=== PATIENT | female | born 1995 | race Caucasian/White ===

== ENCOUNTER 2019-02-10 12:03 | Observation (INO) ==
[2019-02-10] MEDS ORDERED: FLU Vac QV 19-20 (6Month+)/PF 0.5 ML SYRINGE IM ONE (12:39)
[2019-02-10 12:45] VITALS: BP 118/63
--- NOTE | 2019-02-10 13:25 | OB/GYN History & Physical ---
Date of Encounter: 02/10/19 Time of Encounter: 13:24 Assessment and Plan (1) Dehydration Current visit: Yes Status: Acute 23yo at 24+3wks GA who presents with concern for nausea, lightheadedness, dizziness, headache 1. Concern for dehydration - patient with adequate PO intake - was pulling weeds yesterday in the heat - feeling nauseated, 1x emesis, but now able to tolerate PO - recommendation for patient to hydate and NOT remain in the sun with excessive heat and humidity - swelling in upper and lower extremities was not appreciated on examination, patient reported it had improved upon arrival - will have patient f/u in the office, recommendation at time of discharge for PO hydration and temperature awareness 2. FWB - good FM - S = D - RNST for GA 3. MWB - normotensive - denies n/v/d currently - po hydration recommended - VSS/HDS Dispo: DC to home with PTL precaution(s). Reactive and reassuring NST for GA, appropriate for 24 weeks GA, 10x10 accels appreciated. MD YVONNE History of Present Illness Chief complaint: 23YO G1 HPI: Ms. Jacob is a 23 year old female at 24+3wks GA who presents to labor and delivery reporting to not feel well. The patient reports having had one bout of emesis yesterday, but has been able to tolerate PO solds and hydration since that time. She also reports swelling in her lower extremities and upper extremities. This was most recently. There is temporal artery pulsation per the patient, denies issues with actual headaches. States this comes and goes. Has not had a history of headaches. Uncomplicated otherwise. Alysha reports to hydrate well while at home, however she was outside yesterday in over 90 degree weather pulling weeds with her . I recommended that she NO LONGER do this due to her and that she needs to stay indoors and hydrate during the excessive heat and humidity. Denies elevated BP. Denies RUQ pain. Denies chest pain, shortness of breath. Past Med Surg Social Fam HX - Past Medical History Medical history: no medical history Additional medical history: Migraines Psychiatric history: no psych history - Past Surgical History Surgical History: other Additional surgical history: wisdom teeth extraction- 2017. T&A-2015 - Social History Smoking Status: Never smoker Smokeless Tobacco Status: No Alcohol use: none Drug use: none - Family History Brother Living Status: Hx Family Cardiac Disorders: No Hx Family Medical Disorders: No (findings during autopsy.) Obstetrical History - Pregnancies : 1 Para: 0 Term: 0 : 0 Ab's: 0 Livin Medications and Allergies Pnv No.95/Ferrous Fum/Folic AC [ Caplet] 1 tab PO DAILY 02/10/19 [History] Allergy/AdvReac Type Severity Reaction Status Date / Time No Known Allergies Allergy Verified 02/10/19 12:41 Exam - Vital Signs Vital signs: Initial Vital Signs Temp Pulse Resp BP 98.3 F 64 16 118/63 02/10/19 12:15 02/10/19 12:15 02/10/19 12:15 02/10/19 12:15 - Constitutional Constitutional: well developed, well nourished, no acute distress, average body habitus - HEENT HEENT: Normocephaly, Mucus Membranes Moist - Neck Neck exam: full ROM - Lungs Respiratory exam: CTAB - Cardiovascular Cardiovascular exam: RRR - Abdomen Abdomen: Present: bowel sounds normal - Extremities Extremities exam: full ROM Deep Tendon Reflex Grade: 2+ Normal - Vagina Vagina: Present: normal moisture - Uterus Uterus exam: Present: normal size, normal contour - Anus/Rectum Anus/Rectum: Present: normal perianal skin Results All other labs normal. - VTE Reasons for not Prescribing Prophylaxis: Treatment not Indicated - Low risk for VTE
[2019-02-10 13:36] LABS: Amphetamine Screen,Urine Negative ng/mL (Cutoff=1000); Barbiturate Screen,Urine Negative ng/mL (Cutoff=200); Benzodiazepines Screen,Urine Negative ng/mL (Cutoff=200); Cannabinoid Screen,Urine Negative ng/mL (Cutoff = 50); Cocaine Screen,Urine Negative ng/mL (Cutoff= 300); Opiate Screen,Urine Negative ng/mL (Cutoff=300); Phencyclidine Screen,Urine Negative ng/mL (Cutoff=25)
== END 2019-02-10 14:15 | disposition home or self-care (01) ==
LOC: 1NENULAB
PROVIDERS: ADMIT Advanced Practice Midwife; ATTEND Advanced Practice Midwife

== ENCOUNTER → 2019-02-21 23:00 | Observation (INO) ==
--- NOTE | 2019-02-21 22:51 | OB/GYN Progress Note ---
Date of Encounter: 02/21/19 Time of Encounter: 22:46 - Assessment and Plan (1) 26 weeks gestation of Current Visit: Yes Status: Acute (2) Decreased movement Current Visit: Yes Status: Acute Appropriate tracing, patient feeling movement in triage. Discharged home with labor when to return to triage precautions. Patient verbalizes understanding. Qualifiers: Fetus number: single or unspecified fetus Trimester: second trimester Qualified Code(s): O36.8120 - Decreased movements, second trimester, not applicable or unspecified Subjective - Subjective Interval history: 26+ weeks gestation presents to triage with decreased movement, patient states she has drink water and attempted to do movement counts with no movements felt. Denies contractions vaginal bleeding or leaking of fluid. Antepartum ROS: no loss of fluid, no vaginal bleeding, no movement normal, no contractions Objective - Vital Signs Vital Signs: Intake and Output 02/21/19 02/21/19 02/21/19 07:59 15:59 23:59 Other: Weight 84.776 kg Patient Weight 02/21/19 23:59 Weight 84.776 kg - Exam FHR: auscultation normal FHR comments: baseline 140 Abdomen: Present: soft, gravid
[2019-02-21 22:56] LABS: Amphetamine Screen,Urine Negative ng/mL (Cutoff=1000); Barbiturate Screen,Urine Negative ng/mL (Cutoff=200); Benzodiazepines Screen,Urine Negative ng/mL (Cutoff=200); Cannabinoid Screen,Urine Negative ng/mL (Cutoff = 50); Cocaine Screen,Urine Negative ng/mL (Cutoff= 300); Opiate Screen,Urine Negative ng/mL (Cutoff=300); Phencyclidine Screen,Urine Negative ng/mL (Cutoff=25)
== END | disposition home or self-care (01) ==
LOC: 1NENULAB
PROVIDERS: ADMIT Advanced Practice Midwife; ATTEND Advanced Practice Midwife

== ENCOUNTER → 2019-05-11 21:25 | Observation (INO) ==
[2019-05-11 20:06] LABS: Bilirubin,Urine Negative (Negative); Blood,Urine Negative (Negative); Clarity,Urine Cloudy (Clear); Color,Urine Yellow (Yellow); Glucose,Urine (UA) Normal (Normal); Ketones,Urine Trace mg/dL (Negative); Leukocyte Esterase,Urine Trace (Negative); Nitrite,Urine Negative (Negative); Protein,Urine Negative (Neg-Trace); Specific Gravity,Urine 1.012 (1.010-1.025); Urobilinogen,Urine Normal (Normal)
[2019-05-11 20:08] LABS: Bacteria,Urine Few per hpf (None-Few); Hyaline Casts,Urine None Seen per lpf (None-Few); RBC,Urine 0-3 per hpf (0-3); Squamous Epithelial Cell,Urine Many per lpf (None-Few)
[2019-05-11 20:12] LABS: Amphetamine Screen,Urine Negative ng/mL (Cutoff=1000); Barbiturate Screen,Urine Negative ng/mL (Cutoff=200); Benzodiazepines Screen,Urine Negative ng/mL (Cutoff=200); Cannabinoid Screen,Urine Negative ng/mL (Cutoff = 50); Cocaine Screen,Urine Negative ng/mL (Cutoff= 300); Creatinine,Urine 40 mg/dL; Opiate Screen,Urine Negative ng/mL (Cutoff=300); Phencyclidine Screen,Urine Negative ng/mL (Cutoff=25); Protein/Creatinine Ratio,Urine 0.15 mg/mg (0.00-0.20)
[2019-05-11 20:47] LABS: Basophils # 0.2 K/mcL (0.0-0.2); Eosinophils # 0.2 K/mcL (0.0-0.6); Eosinophils % 1.1 %; Hematocrit 39.4 % (35.3-44.9); Hemoglobin 13.3 g/dL (11.5-15.4); Lymphocytes # 3.2 K/mcL (0.6-4.6); Mean Corpuscular HGB Conc 33.8 g/dL (31.6-35.5); Mean Corpuscular Hemoglobin 29.7 pg (28.0-33.3); Mean Corpuscular Volume 87.9 fL (83.0-100.0); Mean Platelet Volume 9.7 fL (9.4-12.4); Monocytes # 1.1 K/mcL (0.0-1.3); Monocytes % 7.4 %; Neutrophils # 10.1 K/mcL (1.6-8.9); Platelet Count 215 K/mcL (140-400); Red Blood Count 4.48 M/mcL (3.82-4.97); Red Cell Distribution Width 13.4 % (11.5-14.5); Segmented Neutrophils % 66.5 %; White Blood Count 15.2 K/mcL (4.3-11.1)
[2019-05-11 21:06] LABS: Alanine Aminotransferase 12 Units/L (7-52); Aspartate Amino Transferase 18 Units/L (13-39); BUN/Creatinine Ratio 13 (6-26); Blood Urea Nitrogen 6 mg/dL (6-20); Lactate Dehydrogenase 145 Units/L (140-271); eGFR For African Americans > 60 (> 60); eGFR For Non-African Americans > 60 (> 60)
[~2019-05-11 21:25] MED LIST: Acetaminophen 325 MG TABLET PO ONE; Ondansetron ODT 4 MG TAB.RAPDIS SL ONE
== END | disposition home or self-care (01) ==
LOC: 1NENULAB
PROVIDERS: ADMIT Registered Nurse; ATTEND Registered Nurse

== ENCOUNTER → 2019-05-14 21:00 | Observation (INO) ==
[2019-05-14 17:26] LABS: Bilirubin,Urine Small (Negative); Blood,Urine Negative (Negative); Clarity,Urine Cloudy (Clear); Color,Urine Dark Yellow (Yellow); Glucose,Urine (UA) Normal (Normal); Ketones,Urine >=160 mg/dL (Negative); Leukocyte Esterase,Urine Small (Negative); Nitrite,Urine Negative (Negative); Protein,Urine Negative (Neg-Trace); Specific Gravity,Urine 1.021 (1.010-1.025); Urobilinogen,Urine Normal (Normal)
[2019-05-14 17:27] LABS: Basophils # 0.1 K/mcL (0.0-0.2); Basophils % 0.7 %; Hematocrit 38.6 % (35.3-44.9); Hemoglobin 13.1 g/dL (11.5-15.4); Immature Granulocytes % 4.4 % (0-4); Lymphocytes # 0.6 K/mcL (0.6-4.6); Lymphocytes % 5.9 %; Mean Corpuscular HGB Conc 33.9 g/dL (31.6-35.5); Mean Corpuscular Hemoglobin 29.6 pg (28.0-33.3); Mean Corpuscular Volume 87.1 fL (83.0-100.0); Mean Platelet Volume 10.1 fL (9.4-12.4); Monocytes # 0.7 K/mcL (0.0-1.3); Monocytes % 6.1 %; Neutrophils # 8.8 K/mcL (1.6-8.9); Platelet Count 165 K/mcL (140-400); Red Blood Count 4.43 M/mcL (3.82-4.97); Red Cell Distribution Width 13.8 % (11.5-14.5); Segmented Neutrophils % 82.9 %; White Blood Count 10.6 K/mcL (4.3-11.1)
[2019-05-14 17:29] LABS: Bacteria,Urine Few per hpf (None-Few); Hyaline Casts,Urine None Seen per lpf (None-Few); Squamous Epithelial Cell,Urine Many per lpf (None-Few)
[2019-05-14 17:36] LABS: Amphetamine Screen,Urine Negative ng/mL (Cutoff=1000); Barbiturate Screen,Urine Negative ng/mL (Cutoff=200); Benzodiazepines Screen,Urine Negative ng/mL (Cutoff=200); Cannabinoid Screen,Urine Negative ng/mL (Cutoff = 50); Cocaine Screen,Urine Negative ng/mL (Cutoff= 300); Opiate Screen,Urine Negative ng/mL (Cutoff=300); Phencyclidine Screen,Urine Negative ng/mL (Cutoff=25)
[~2019-05-14 21:00] MED LIST changes: -Acetaminophen 325 MG TABLET PO ONE; +D5% in Lactated Ringers 1,000 ML IVC SCH; +Ondansetron 4 MG/2 ML VIAL IVP PRN; -Ondansetron ODT 4 MG TAB.RAPDIS SL ONE; +Ringers Solution, Lactated 1,000 ML IVC ONE
== END | disposition home or self-care (01) ==
LOC: 1NENULAB
PROVIDERS: ADMIT Advanced Practice Midwife; ATTEND Advanced Practice Midwife

== ENCOUNTER 2019-05-24 23:00 | Inpatient (IN) ==
[2019-05-24] MEDS ORDERED: Metoclopramide 10 MG/2 ML VIAL IVP PRN (23:10)
[2019-05-24] MEDS ORDERED: Famotidine 20 MG/2 ML VIAL IVP PRN (23:10)
[2019-05-24] MEDS ORDERED: Naloxone 0.4 MG/ML INJ IVP PRN (23:10)
[2019-05-24] MEDS ORDERED: Penicillin G Potassium 5,000,000 UNIT in 0.9 % Sodium Chloride Mini Bag 100 ML IVPB ONE (23:30)
[2019-05-25] MEDS ORDERED: miSOPROStoL 25 MCG TABLET PO SCH
[2019-05-25] MEDS ORDERED: Ropivacaine/PF 0.2% 20 ML VIAL EP ONE (00:21)
[2019-05-25] MEDS ORDERED: *HR* FentaNYL (PF) 100 MCG/2 ML VIAL EP ONE (00:21)
[2019-05-25] MEDS ORDERED: Ondansetron 4 MG/2 ML VIAL IVP PRN (00:21)
[2019-05-25] MEDS ORDERED: EPHEDrine 50 MG/ML VIAL IVP PRN (00:21)
[2019-05-25] MEDS ORDERED: Naloxone 0.4 MG/ML INJ IVP PRN (00:21)
[2019-05-25] MEDS ORDERED: Epidural Premix (fent/bupiv) 110 ML EP SCH (00:30)
[2019-05-25 00:34] LABS: Basophils # 0.1 K/mcL (0.0-0.2); Basophils % 0.8 %; Eosinophils # 0.1 K/mcL (0.0-0.6); Eosinophils % 0.4 %; Hematocrit 38.7 % (35.3-44.9); Hemoglobin 13.1 g/dL (11.5-15.4); Immature Granulocytes % 2.4 % (0-4); Immature Platelets 3.2 % (1.1-6.1); Lymphocytes # 3.2 K/mcL (0.6-4.6); Mean Corpuscular HGB Conc 33.9 g/dL (31.6-35.5); Mean Corpuscular Hemoglobin 29.2 pg (28.0-33.3); Mean Corpuscular Volume 86.4 fL (83.0-100.0); Mean Platelet Volume 9.6 fL (9.4-12.4); Monocytes % 7.6 %; Neutrophils # 8.7 K/mcL (1.6-8.9); Platelet Count 268 K/mcL (140-400); Red Blood Count 4.48 M/mcL (3.82-4.97); Red Cell Distribution Width 13.8 % (11.5-14.5); Segmented Neutrophils % 64.8 %; White Blood Count 13.5 K/mcL (4.3-11.1)
[2019-05-25 00:45] LABS: Amphetamine Screen,Urine Negative ng/mL (Cutoff=1000); Barbiturate Screen,Urine Negative ng/mL (Cutoff=200); Benzodiazepines Screen,Urine Negative ng/mL (Cutoff=200); Cannabinoid Screen,Urine Negative ng/mL (Cutoff = 50); Cocaine Screen,Urine Negative ng/mL (Cutoff= 300); Opiate Screen,Urine Negative ng/mL (Cutoff=300); Phencyclidine Screen,Urine Negative ng/mL (Cutoff=25)
[2019-05-25] MEDS: Ringers Solution, Lactated 1,000 ML IVC SCH ×3 (00:56→16:49)
[2019-05-25] MEDS: Penicillin G Potassium 2,500,000 UNIT in 0.9 % Sodium Chloride 100 ML IVPB SCH ×3 (04:58→16:52)
[2019-05-25] MEDS ORDERED: Oxytocin 20 units/ LR 1000 mL 20 UNIT/1,000 ML BAG IVC SCH (06:00)
[2019-05-25] MEDS ORDERED: Methylergonovine 0.2 MG/ML AMPUL IM ONE (09:23)
[2019-05-25] MEDS: Ondansetron 4 MG/2 ML VIAL IVP PRN ×2 (09:53→15:53)
[2019-05-25] MEDS: *HR* Nalbuphine 10 MG/ML AMPUL IVP PRN ×2 (12:55→15:39)
[2019-05-25] MEDS ORDERED: *HR* FentaNYL (PF) 100 MCG/2 ML VIAL ONE (16:24)
[2019-05-25] MEDS ORDERED: Ropivacaine/PF 0.2% 20 ML VIAL ONE (16:24)
[2019-05-26] MEDS ORDERED: Acetaminophen 325 MG TABLET PO PRN (00:34)
[2019-05-26] MEDS ORDERED: Oxytocin 20 units/ LR 1000 mL 20 UNIT/1,000 ML BAG IVC SCH (00:34)
[2019-05-26] MEDS ORDERED: Rho Immune Globulin 1,500 UNIT SYRINGE IM PRN (00:34)
[2019-05-26] MEDS ORDERED: Sennosides 8.6 MG TABLET PO PRN (00:34)
[2019-05-26] MEDS ORDERED: Oxytocin 20 units/ LR 1000 mL 20 UNIT/1,000 ML BAG IVC ONE (00:34)
[2019-05-26] MEDS ORDERED: Measles/Mumps/Rubella Vacc 0.5 ML VIAL SQ PRN (00:34)
[2019-05-26] MEDS ORDERED: Lanolin 7 G OINT...G. TP PRN (00:56)
[2019-05-26 07:19] LABS: Basophils # 0.1 K/mcL (0.0-0.2); Basophils % 0.2 %; Hematocrit 35.8 % (35.3-44.9); Hemoglobin 12.1 g/dL (11.5-15.4); Immature Granulocytes % 1.5 % (0-4); Lymphocytes # 1.7 K/mcL (0.6-4.6); Lymphocytes % 7.3 %; Mean Corpuscular HGB Conc 33.8 g/dL (31.6-35.5); Mean Corpuscular Hemoglobin 29.3 pg (28.0-33.3); Mean Corpuscular Volume 86.7 fL (83.0-100.0); Mean Platelet Volume 9.8 fL (9.4-12.4); Monocytes # 2.1 K/mcL (0.0-1.3); Monocytes % 8.9 %; Neutrophils # 19.2 K/mcL (1.6-8.9); Platelet Count 256 K/mcL (140-400); Red Blood Count 4.13 M/mcL (3.82-4.97); Red Cell Distribution Width 13.8 % (11.5-14.5); Segmented Neutrophils % 82.1 %
[2019-05-26 07:21] LABS: White Blood Count 23.4 K/mcL (4.3-11.1)
[2019-05-26] MEDS: Prenatal Vit/FA 1 EACH TABLET PO SCH (08:54)
[2019-05-26] MEDS: Ibuprofen 600 MG TABLET PO PRN ×2 (09:47→17:48)
[2019-05-27 07:39] VITALS: BP 105/49
[2019-05-27] MEDS: Prenatal Vit/FA 1 EACH TABLET PO SCH (08:58)
== END 2019-05-27 12:00 | disposition home or self-care (01) | DRG 807 ==
LOC: 1NENULAB 23:03 → 1NENUOBS 05-26 00:06
PROVIDERS: ADMIT Student in an Organized Health Care Education/Training Program; ATTEND Student in an Organized Health Care Education/Training Program